=== PATIENT | female | born 1985 | race African-American/Black ===

== ENCOUNTER 2024-12-04 08:00 | Outpatient (AMB) | payer OTHER, SELFPAY ==
--- OUTSIDE RECORDS SUMMARY | 2024-12-04 08:25 | XMS_ITS | Clinical Summary ---
Author Organization [employer] Address [address] [facility] [address] [place] [address] Care Team Providers Care Freezer Operator Name Role Phone Unavailable Primary Care Provider Unavailabl e Allergies Active Allergy Reactions Criticality Noted Date Comments Doxycycline 08/27/2024 Medications omeprazole (PriLOSEC) [address] capsule Take 40 mg by mouth before breakfast. Do not crush or chew. Active Active Problems No known active problems Encounters Date Type Department Care Team Description 10/28/2024 Outside Procedure [facility] [address] [place] [address] Shelia Marshall, OD Presbyopia (Primary Dx) 10/25/2024 1:15 PM EDT Office Visit [facility] [address] [place] [address] Shelia Marshall, OD Myopia of both eyes (Primary Dx) from Last 3 Months Social History Tobacco Use Types Packs/Day Years Used Date Smoking Tobacco: Unknown Tobacco Cessation:Counseling Given: Not Answered Comments Unknown Sex and Gender Information Value Date Recorded Sex Assigned at Female 08/27/2024 3:09 PM EDT Legal Sex Female 11:56 AM EST Gender Identity Female 08/27/2024 3:09 PM EDT Sexual Orientation Straight 08/27/2024 3: 09 PM EDT Plan of Treatment Health Maintenance Due Date Last Done Comments Depression Screening 1987 HIV Screening 1987 Lipid Panel 1987 SDOH Screening 1987 Disability Screening 1987 Alcohol/Substance Use Screening 1999 Family Planning (PISQ) 2002 HPV Vaccines (1 - 3-dose series) 2002 Hepatitis C Screening 2005 Pap Smear 2008 Cervical Cancer Screening 2017 HPV/Cotest 2017 DTaP/Tdap/Td Vaccines (2 - Td or Tdap) 12/18/2017 12/19/2007 COVID-19 Vaccine (4 - season) 2023 07/11/2021, 01/14/2021, 12/24/2020 Influenza Vaccine (#1) 2024 , 02/08/2024, 03/06/2023, Additional history exists Tobacco Screening 08/27/2025 08/27/2024 Zoster Vaccines (1 of 2) 2037 RSV Patients and Patients Aged 60 years or older (1 - 1-dose 75+ series) 2062 Hepatitis B Vaccines Completed 05/24/2012, 01/28/2009, 12/19/2007 HIB Vaccines Aged Out No longer eligi ble based on patient's age to complete this topic Hepatitis A Vaccines Aged Out No long er eligible based on patient's age to complete this topic IPV Vaccines Aged Out No longer eligi ble based on patient's age to complete this topic Meningococcal B Vaccine Aged Out No l onger eligible based on patient's age to complete this topic Meningococcal Vaccine Aged Out No dora hellen eligible based on patient's age to complete this topic Pneumococcal Vaccine: Pediatrics (0 to 5 Years) and At-Risk Patients (6 to 49) Years Aged Out No longer eligible based on patient's age to complete this topic RSV under 20 months Aged Out No longe r eligible based on patient's age to complete this topic Rotavirus Vaccines Aged Out No longer eligible based on patient's age to complete this topic [place] [address] [address] (O)
--- OUTSIDE RECORDS SUMMARY | 2024-12-04 08:25 | XMS_ITS | Clinical Summary ---
Author Organization [facility] Address [address] [address] Phone Care Team Providers Care Drying And Winding Supervisor Name Role Phone Emily Mendoza MD Primary Care Provider [phone] Allergies Active Allergy Reactions Criticality Noted Date Comments Doxycycline Nausea and/or Vomiting 02/10/2022 Medications apixaban (ELIQUIS) 5 mg tablet 2 Active traMADoL (ULTRAM) 50 mg tablet TAKE 1 TABLET BY MOUTH TWO TIMES A DAY NEEDED FOR MODERATE PAIN 2 Active eucalyp/me-sali cylate/men/thym (MOUTH RINSE MM) RINISE WITH 10 ML BY MOUTH 3 TIMES A DAY AFTER MEALS AND BEDTIME,X14 DAYS 2 Active zinc sulfate (ZINCATE) 50 mg zinc (220 mg) capsule Take 1 capsule (220 mg total) by mouth daily. 30 capsule 11 2 Active saliva substitute combo no.9 (BIOTENE DRY MOUTH ORAL RINSE) Mwsh Swish and spit 30 mL every 4 (four) hours as needed (as needed for dry mouth). 1000 mL 5 2 Active DAILY-GISELL, WITH FOLIC ACID, 400 mcg tablet TAKE 1 TABLET BY MOUTH EVERY DAY 90 tablet 1 3 Active magnesium oxide 250 mg (150 mg elemental) Tab TAKE 1 CAPSULE BY MOUTH EVERY DAY NOT COVERED 90 tablet 1 3 Active PEROXIDE SORE MOUTH CLEANSER 1.5 % Soln APPLY TOPICALLY TWICE DAILY 236 mL 11 3 Active Active Problems Problem Noted Date Diagnosed Date Thyroid nodule 04/26/2022 Gastroesophageal reflux dise ase with esophagitis without hemorrhage 04/26/2022 Tongue coating 03/02/2022 Candidosis of mouth 02/12/2022 Sore throat 02/12/2022 Chronic tonsil/adenoid disease 02/12/2022 Social History Tobacco Use Types Packs/Day Years Used Date Smoking Tobacco: Never Smokeless Tobacco: Never Alcohol Use Standard Drinks/Week Comments Yes 0 (1 standard drink = 0.6 oz pur e alcohol) Education Answer Date Recorded Are you interested in more education? Not on neymar e 08/27/2022 Are you concerned about learning? Not on file 08/27/2022 No 08/27/2022 No 08/27/2022 Digital Access Answer Date Recorded No 09/24/2022 No 09/24/2022 No 09/24/2022 Reliable internet access at home? Not on file 09/24/2022 Device with a working camera? Not on file Comments Unknown Sex and Gender Information Value Date Recorded Sex Assigned at Female 10/05/2020 1:32 PM EDT Legal Sex Female 1:23 PM EDT Gender Identity Female 10/05/2020 1:32 PM EDT Sexual Orientation Straight 10/05/2020 1: 32 PM EDT Last Filed Vital Signs Vital Sign Reading Time Taken Comments Blood Pressure - - Pulse - - Temperature - - Respiratory Rate - - Oxygen Saturation - - Inhaled Oxygen Concentration - - Weight 102.1 kg (225 lb) 03/02/2022 4:37 PM EDT Height 157.5 cm (5' 2 ) 03/02/2022 4:37 PM EDT Body Mass Index 41.15 03/02/2022 4:37 PM EDT Plan of Treatment Health Maintenance Due Date Last Done Comments CREATININE LEVEL 1987 DEPRESSION SCREENING 1999 HEPATITIS C SCREENING 2005 HIV ONE-TIME SCREENING (18-6 5 YEARS) 2005 PAP SMEAR 2008 SCREENING FOR DIABETES 2022 COVID-19 VACCINE (4 - 2023-2 5 season) 2023 07/11/2021, 01/14/2021, 12/24/2020 Adult Td,Tdap Booster 05/03/2029 05/03/2019 , 10/14/2015, 11/25/1999 SMOKING STATUS SCREENING (On ce After 26 Yrs) Completed 03/02/2022 HEPATITIS A VACCINES Aged Out No long er eligible based on patient's age to complete this topic HIB VACCINES Aged Out No longer eligi ble based on patient's age to complete this topic MENINGOCOCCAL VACCINES (ACWY) Aged Out No longer eligible based on patient's age to complete this topic MENINGOCOCCAL VACCINES (B) Aged Out N o longer eligible based on patient's age to complete this topic PNEUMOCOCCAL VACCINES (0-49 years) Aged Out No longer eligible b ased on patient's age to complete this topic Medical Devices Not on file Insurance [address] [place], [place] [address]O [facility] [place] [address] [place], [place] [address] [place] [address] [place] [address] [place] [address] [place] [address] [place] [address] [address] HMO POS [facility] Care Teams Drying And Winding Supervisor Relationship Specialty Start Date End Date Emily Mendoza MD [address] [place] [id number] PCP - General Internal Medicine 10/05/20 Additional Source Comments The information contained in this document represents components of the legal health record. It is not the complete legal health record.[facility]
--- NOTE | 2024-12-04 08:36 | MHC.OFFVISWM ---
VS Expanded 12/04/24 09:01 Height 5 ft 2.5 in Weight 226 lb 8 oz BMI 40.8 Body Fat % 45.6 Body Fat Mass 103.4 Fat Free Mass 123.2 Visceral Fat Rating 12 Body Water % 38.9 Body Water Mass 88.2 Basal Metabolic Rate/Score 1,749 Intake Visit Reasons: [facility] Lap Band Removal BMI 40.8 Allergies doxycycline Allergy (Unknown, Verified 12/04/24 08:38) unknown Medication List - Last Reconciled 12/04/24 by Yoan Hall MD nystatin topical BID omeprazole 40 mg PO DAILY spironolactone 50 mg PO BID HPI HPI [facility] Lap Band Removal BMI 40.8: Details: Start time: 8.21am, End time: 9.01am ?I spent 35 minutes speaking with the patient on the phone plus an additional 5 minutes reviewing and updating records for a total of 40 minutes HPI Comments Details: Previous weight loss efforts: Wakes up: 6am, Sleeps: 11pm Breakfast: skips Lunch: 11-1pm (chips with guacamole, sandwich) Dinner: 6pm (pasta, rice, Snacks: exercise: Beverages: Coffee (4 cups/wk with cream and sugar) PFSH Medical History (Updated 12/04/24 @ 08:39 by Yoan Hall MD) GERD (gastroesophageal reflux disease) Hypertension Hirsutism PCOS (polycystic ovarian syndrome) Morbid obesity Surgical History (Updated 11/13/24 @ 08:18 by Radha Choi CMA) Hx of laparoscopic gastric banding Family History (Updated 11/06/24 @ 15:06 by Radha Choi CMA) Mother Alzheimer dementia Hypertension Osteoporosis Father Hypertension Daughter No problems noted. Daughter No problems noted. Social History (Updated 11/06/24 @ 15:07 by Radha Choi CMA) Alcohol intake: current Alcohol intake frequency: holidays/special occasions only Patient Tobacco Use Status: Never used Tobacco Telehealth Telehealth Telehealth Platform: Telephone Location of provider rendering services: practice address Location of patient: address on file Patient Identification confirmed using: Name, : Yes Telehealth method: voice only Patient verbally consented to treatment: Yes Patient verbally consented to billing insurance company: Yes Patient informed of any privacy concerns related to visit: Yes Minutes spent on Phone/Video with Pt.: 40 Assessment & Plan Assessment & Plan (1) Morbid obesity: Code(s): E66.01 - Morbid (severe) obesity due to excess calories Category: Medical Plan: 1. I advised the patient that the band has to be removed as soon as possible due to the risk of band erosion, band slippage, esophageal dilation and progressive esophagitis from the ongoing reflux. 2. I emphasized to her that as much as she may have improved her diet habits on her own and some of the unhealthy foods she eats is a necessity as the band limits her significantly on what to eat, her diet habits are unhealthy and she needs to be willing to work with me and change her lifestyle in order to be successful long-term. A weight loss medication will not do that for her in the long run. 3. Although her insurance does not approve GLP-1 agonist injections as a first line for treatment of obesity without diabetes, she could be a candidate for GLP-1 agonists because she medically treated hypertension with elevated blood pressure and has tried 3 months ago Phentermine through her PCP and she developed side effects and had to discontinue it. The patient will consider all the above and get back to me with what she would like to do.
[2024-12-04 09:01] VITALS: BMI 40.8
== END 2024-12-04 09:02 | disposition home or self-care (01) ==
LOC: HO.HBS 08:21
PROVIDERS: PCP Physician Assistant; Visit Provider Surgery
DX: E66.01 Morbid (severe) obesity due to excess calories (principal)
CPT/HCPCS: 99203